=== PATIENT | male | born 1985 | race Caucasian/White ===

== ENCOUNTER 2021-08-29 08:28 | Outpatient (REF) | payer BC, SELFPAY ==
[2021-08-29 08:55] LABS: MANUAL DIFF FLAG NO
[2021-08-29 09:05] LABS: Basophils Percent Auto 0.5 % (0-2); Eosinophils Absolute Auto 0.4 X10*3/uL (0.0-0.4); Eosinophils Percent Auto 5.8 % (0-4); Hematocrit 43.1 % (42.0-52.0); Hemoglobin 14.9 g/dl (14.0-18.0); Imm Gran Abs Auto 0.01 X10*3/uL (0.00-0.03); Imm Gran Pct Auto 0.2 % (0.0-0.4); Lymphocytes Absolute Auto 2.1 X10*3/uL (1.2-4.9); Lymphocytes Percent Auto 35.4 % (20-40); Mean Corpuscular HGB Conc 34.6 g/dl (31.0-36.0); Mean Corpuscular Hemoglobin 29.9 pg (27.0-33.0); Mean Corpuscular Volume 86.4 fL (80.0-98.0); Mean Platelet Volume 10.4 fL (9.4-12.4); Monocytes Absolute Auto 0.6 X10*3/uL (0.1-1.2); Monocytes Percent Auto 9.7 % (2-11); Neutrophils Absolute Auto 2.9 x10*3/uL (2.0-8.3); Neutrophils Percent Auto 48.4 % (45-73); Platelet Count 195 X10*3/uL (160-400); Red Blood Count 4.99 X10*6/uL (4.60-5.80); Red Cell Distribution Width 12.3 % (11.0-16.0)
[2021-08-29 09:58] LABS: Alanine Aminotransferase 22 U/L (0-40); Albumin Level 4.4 g/dL (3.5-5.0); Alkaline Phosphatase 57 U/L (39-117); Anion Gap 9 (12-20); Aspartate Amino Transferase 18 U/L (5-37); Bilirubin Total 1.1 mg/dL (0.0-1.0); Blood Urea Nitrogen 10 mg/dL (9-16); Calcium 9.3 mg/dL (8.4-10.2); Carbon Dioxide 26 mmol/L (22-29); Chloride 108 mmol/L (96-108); Cholesterol 176 mg/dL; Estimated Glomerular Filt Rate > 60; Glucose Fasting 95 mg/dL (60-99); HDL Cholesterol 39 mg/dL; LDL Cholesterol Calculated 121 mg/dl; Potassium 4.2 mmol/L (3.3-5.1); Sodium 139 mmol/L (135-145); Total Protein 6.8 g/dL (6.5-8.0); Triglycerides 81 mg/dL
[2021-08-29 10:04] LABS: TSH reflex Free T4 1.12 uIU/mL (0.32-4.0); Vitamin D 25-OH Total 33.1 ng/mL (>30)
[2021-08-29 10:47] LABS: Appearance Urine CLEAR; Color Urine YELLOW; Glucose Urine UA NEG (NEG); Leukocyte Esterase Urine NEG (NEG); Nitrite Urine NEG (NEG); Specific Gravity - Urine >= 1.030 (1.005-1.025); Urine Blood NEG (NEG); Urine Ketones NEG (NEG); Urine Protein NEG (NEG-TRACE)
== END 2021-08-29 08:29 | disposition home or self-care (01) ==
LOC: HO.LAB 08:28
PROVIDERS: PCP Internal Medicine; Visit Provider Internal Medicine
DX: Z00.00 Encounter for general adult medical examination without abnormal findings (principal); E66.3 Overweight; E55.9 Vitamin D deficiency, unspecified
CPT/HCPCS: 36415; 80053; 80061; 81003; 82306; 84443; 85025

== ENCOUNTER 2022-08-22 09:40 | Outpatient (REF) | payer BC, SELFPAY ==
[2022-08-22 09:54] LABS: MANUAL DIFF FLAG NO
[2022-08-22 11:02] LABS: Basophils Percent Auto 0.4 % (0-2); Eosinophils Absolute Auto 0.3 X10*3/uL (0.0-0.4); Eosinophils Percent Auto 5.9 % (0-4); Hematocrit 42.8 % (42.0-52.0); Hemoglobin 14.8 g/dl (14.0-18.0); Imm Gran Abs Auto 0.01 X10*3/uL (0.00-0.03); Imm Gran Pct Auto 0.2 % (0.0-0.4); Lymphocytes Absolute Auto 1.8 X10*3/uL (1.2-4.9); Lymphocytes Percent Auto 36.2 % (20-40); Mean Corpuscular HGB Conc 34.6 g/dl (31.0-36.0); Mean Corpuscular Hemoglobin 29.8 pg (27.0-33.0); Mean Corpuscular Volume 86.1 fL (80.0-98.0); Mean Platelet Volume 10.7 fL (9.4-12.4); Monocytes Absolute Auto 0.5 X10*3/uL (0.1-1.2); Monocytes Percent Auto 10.5 % (2-11); Neutrophils Absolute Auto 2.4 x10*3/uL (2.0-8.3); Neutrophils Percent Auto 46.8 % (45-73); Platelet Count 173 X10*3/uL (160-400); Red Blood Count 4.97 X10*6/uL (4.60-5.80); Red Cell Distribution Width 12.1 % (11.0-16.0); White Blood Count 5.1 X10*3/uL (4.8-10.8)
[2022-08-22 12:12] LABS: Alanine Aminotransferase 30 U/L (0-40); Albumin Level 4.3 g/dL (3.5-5.0); Alkaline Phosphatase 54 U/L (39-117); Anion Gap 13 (12-20); Aspartate Amino Transferase 23 U/L (5-37); Bilirubin Total 1.5 mg/dL (0.0-1.0); Blood Urea Nitrogen 12 mg/dL (9-16); Calcium 9.6 mg/dL (8.4-10.2); Carbon Dioxide 24 mmol/L (22-29); Chloride 107 mmol/L (96-108); Cholesterol 173 mg/dL; Estimated Glomerular Filt Rate > 60; Glucose Fasting 89 mg/dL (60-99); HDL Cholesterol 38 mg/dL; LDL Cholesterol Calculated 115 mg/dl; Potassium 4.2 mmol/L (3.3-5.1); Sodium 140 mmol/L (135-145); TSH reflex Free T4 1.06 uIU/mL (0.32-4.0); Total Protein 6.7 g/dL (6.5-8.0); Triglycerides 100 mg/dL; Vitamin D 25-OH Total 31.7 ng/mL (>30)
[2022-08-22 12:39] LABS: Appearance Urine Clear; Color Urine Yellow; Glucose Urine UA Negative (Negative); Leukocyte Esterase Urine Negative (Negative); Nitrite Urine Negative (Negative); PH 6.5 (5.0-9.0); Specific Gravity - Urine 1.025 (1.005-1.025); Urine Blood Negative (Negative); Urine Ketones Negative (Negative); Urine Protein Negative (Neg-Trace)
== END 2022-08-22 09:41 | disposition home or self-care (01) ==
LOC: HO.LAB 09:40
PROVIDERS: PCP Internal Medicine; Visit Provider Internal Medicine
DX: Z00.00 Encounter for general adult medical examination without abnormal findings (principal); R76.8 Other specified abnormal immunological findings in serum; R79.89 Other specified abnormal findings of blood chemistry; R30.0 Dysuria; E55.9 Vitamin D deficiency, unspecified; E78.00 Pure hypercholesterolemia, unspecified
CPT/HCPCS: 36415; 80053; 80061; 81003; 82306; 84443; 85025

== ENCOUNTER 2023-03-19 06:22 | Emergency (ER) | payer BC, SELFPAY ==
--- NOTE | ~2023-03-19 | CT_ITS ---
EXAMINATION: CT ABDOMEN AND PELVIS WITHOUT CONTRAST CLINICAL INFORMATION: Abdominal pain radiating to the back. COMPARISON: Abdominal ultrasound from 08/16/2015. TECHNIQUE: Multidetector volumetric imaging was performed from the lung bases to the pubic without contrast. Sagittal and coronal reformatted images were obtained on the technologist workstation. This CT examination was performed using dose optimization techniques as appropriate, variously including the following: *Automated exposure control. *Adjustment of mA and/or kV according to patient size (this includes techniques or standardized protocols for targeted exams where dose is matched to indication/reason for exam; i.e. extremities or head). *Use of iterative reconstruction technique. DLP: 507 mGy-cm FINDINGS: LUNG BASES: No abnormalities of the visualized lung bases. No demonstrated abnormalities of the visualized cardiac structures. ABDOMEN/PELVIS: Liver, Biliary Ducts, and Gallbladder: The unenhanced liver is normal in size and attenuation without focal hepatic lesions or biliary ductal dilatation. The gallbladder is physiologically distended without radiopaque gallstones, pericholecystic fluid, or significant gallbladder wall thickening. Pancreas: The pancreas is normal in appearance. Adrenal Glands: The adrenal glands are normal in appearance. Spleen: The spleen is normal in appearance. Kidneys and Ureters: The unenhanced kidneys are normal in size without evidence of nephrolithiasis or hydronephrosis. No ureterolithiasis or hydroureter. Urinary Bladder: The urinary bladder is partially distended without focal wall thickening. No bladder calculi are demonstrated. Gastrointestinal System: The stomach is decompressed and therefore not well evaluated on this exam. The small bowel is of normal caliber. Mild diverticulosis of the descending colon. Moderate fat stranding surrounding an edematous tic filled with hyperattenuating material in the lower descending colon. Otherwise, the remainder of the colon is normal in appearance without focal wall thickening or pericolonic inflammatory change. Normal appendix. Genitourinary: Normal appearance of the prostate gland and seminal vesicles. Intra-abdominal and Retroperitoneal Spaces: No intra-abdominal free fluid collections or gas. No mesenteric, retroperitoneal, or inguinal lymphadenopathy. Small right-sided fat-containing inguinal hernia. VASCULATURE: The abdominal aorta is of normal contour and caliber. MUSCULOSKELETAL: Mild multilevel degenerative changes of the spine. No lytic or sclerotic osseous lesions demonstrated. No soft tissue masses demonstrated. CT/CT abdomen pelvis wo IV con IMPRESSION: Findings suggestive of acute diverticulitis of the descending colon. No evidence of perforation at this time.
[2023-03-19 06:43] VITALS: BP 112/88; PULSE 76; RESP 20; TEMP 36.1; O2SAT 98; BMI 28.6
--- NOTE | 2023-03-19 07:29 | ED.ABDPAIN ---
HPI - Abdominal Pain General Chief Complaint: Abdominal Pain Stated Complaint: stomach pain Time Seen by Provider: 03/19/23 07:28 Source: patient Mode of arrival: ambulatory Limitations: no limitations History of Present Illness HPI narrative: This is a 37-year-old male presenting to the emergency department for complaints of severe lower abdominal pain that started yesterday after eating, patient reports pain is mostly to the lower abdomen left lower quadrant however now he feels like the pain is everywhere. He has been able to tolerate p.o. without difficulty. Denies associated nausea, vomiting, diarrhea, fevers, chills, chest pain, shortness of breath, headache, vision changes, dizziness and weakness. No history of diverticulitis or kidney stones. Denies urinary symptoms. Related Data Previous Rx's Medication Instructions Recorded amoxicillin 875 mg-potassium 1 tab PO BID 10 days #20 tabs 03/19/23 clavulanate 125 mg tablet Allergies Allergy/AdvReac Type Severity Reaction Status Date / Time No Known Allergies Allergy Verified 08/22/22 09:14 [No Known Allergies*] Review of Systems Review of Systems Constitutional : No Weight loss, No Fever, No Chills, No Fatigue, No Malaise ENT/Mouth : No sore throat, No Rhinorrhea Eyes: No Eye Pain, No Swelling, No Redness Cardiovascular : No Chest Pain, No SOB, No Dyspnea on Exertion, No Orthopnea, No Edema, No Palpitations Respiratory : No Cough, No Sputum, No Wheezing Gastrointestinal : No Nausea, No Vomiting, No Diarrhea, No Constipation, + abdominal Pain, No Hematochezia, No Melena Genitourinary : No Dysuria, No Urinary Frequency, No Hematuria, Musculoskeletal : No joint pain, No Myalgias, No Joint Swelling Skin : No Skin Lesions, No rash Neuro : No Weakness, No Numbness, No Dizziness, No Headache Psych : No Anxiety/Panic, No Depression All other systems reviewed and are negative Yes all other systems are reviewed and are negative PMFSH Past Medical History Attestation statement: The following information was validated with the patient. Source: old records reviewed and nursing notes reviewed Medical History Helicobacter pylori antibody positive Overweight (BMI 25.0-29.9) Surgical History No pertinent past surgical history Family History Family History Mother No problems noted. Father No problems noted. Social History [facility] Alcohol intake: current Alcohol intake frequency: does not drink Patient Tobacco Use Status: Never used Tobacco e-Cigarette/Vaping Use: Never Used Second Hand Smoke Exposure: No Advance Directives: No Advance Directives Information Provided: Yes service: No Current occupational status: employed Cognitive needs: No Hearing needs: No Vision needs: No Physical Exam ED Vital Signs: Vital Signs - 24 hr 03/19/23 06:43 03/19/23 08:22 Temperature 97.0 F Pulse Rate 76 66 Respiratory Rate 20 18 Blood Pressure 112/88 123/75 Pulse Oximetry 98 95 Oxygen Delivery Method Room Air Room Air BMI result Body Mass Index 28.6 vss Appearance: Alert.? Oriented X3.? No acute distress.? Head: Normocephalic, atraumatic, no step-offs or deformities Eyes: Pupils equal, round and reactive to light.? ENT: Pharynx normal.? Neck: Normal inspection.? Neck supple.? CVS: Normal heart rate and rhythm.? Pulses normal.? Respiratory: No respiratory distress.? Breath sounds normal.? Abdomen: Soft and diffuse lower abdominal discomfort. Normal bowel sounds throughout.? Skin: Skin warm and dry.? Normal skin color.? Normal skin turgor.? Extremities: No lower extremity edema.? No calf ttp. 5/5 strength to bilateral upper and lower extremities Neuro: Oriented X 3.? No motor deficit.? No sensory deficit. CN 2-12 intact Course Reevaluation(s) Reevaluation #1: CBC unremarkable. Chemistry with no electrolyte abnormalities requiring intervention. Normal lipase. Normal troponin. CT abdomen and pelvis with concerns of acute diverticulitis of descending colon no evidence of perforation. Time: 09:24 Reevaluation #2: Patient reports he is feeling better he has not gotten Toradol yet. He is tolerating p.o. he does not want hospital admission and would like to go home on oral antibiotics. Vital signs stable, pain much improved exam improved. Will follow up with GI. Has never had a colonoscopy. Educated patient on diagnosis and treatment plan, answered all question, patient verbalizes understanding. At this time patient will be discharged home, advised to return with new or worsening symptoms. Educated on worrisome signs and symptoms and when to return. At this time I feel comfortable discharge home. Time: 09:24 Reevaluation #3: Tollerating PO at time of DC Time: 09:35 Medical Decision Making Medical Decision Making [facility] Narrative: 0731 37 year old male presents w/ abd pain with radiation to flank X 2 days PE- diffuse lower abdominal discomfort normal bowel sounds throughout Concerns for choclecystitis vs versus diverticulitis versus viral illness vs gasterenteritis. Unliikely acute abdomen, obstruction, appendicitis, cholangitis, choledocolithiasis. Other differential includes constipation. Less likely pyelo. Will rule out UTI and obstructing uropathy Plan- labs, imaging, urine Differential Diagnosis Differential Diagnoses: The differential diagnosis associated with the presentation includes Concerns for choclecystitis vs versus diverticulitis versus viral illness vs gasterenteritis. Unliikely acute abdomen, obstruction, appendicitis, cholangitis, choledocolithiasis. Other differential includes constipation. Less likely pyelo. Will rule out UTI and obstructing uropathy Admission/Observation Consideration of admission/observation: Escalation of care including admission/observation considered Lab Data [facility] Lab Attestation statement: I reviewed the patient's lab results. 03/19/23 07:26 03/19/23 07:26 Labs: Lab Results 03/19/23 Range/Units 07:26 WBC 9.7 (4.8-10.8) X10*3/uL RBC 4.97 (4.60-5.80) X10*6/uL Hgb 14.9 (14.0-18.0) g/dl Hct 42.3 (42.0-52.0) % MCV 85.1 (80.0-98.0) fL MCH 30.0 (27.0-33.0) pg MCHC 35.2 (31.0-36.0) g/dl RDW 12.2 (11.0-16.0) % Plt Count 181 (160-400) X10*3/uL MPV 10.0 (9.4-12.4) fL Immature Gran % (Auto) 0.3 (0.0-0.4) % Neut % (Auto) 71.3 (45-73) % Lymph % (Auto) 17.4 L (20-40) % [place] % (Auto) 8.1 (2-11) % Eos % (Auto) 2.7 (0-4) % Baso % (Auto) 0.2 (0-2) % Lymph # (Auto) 1.7 (1.2-4.9) X10*3/uL [place] # (Auto) 0.8 (0.1-1.2) X10*3/uL Eos # (Auto) 0.3 (0.0-0.4) X10*3/uL Baso # (Auto) 0.0 (0.0-0.2) X10*3/uL Abs Immat Gran (auto) 0.03 (0.00-0.03) X10*3/uL Absolute Neuts (auto) 6.9 (2.0-8.3) x10*3/uL Absolute Nucleated RBC 0.000 (0.0-0.012) X10*3/uL Nucleated RBC % (auto) 0.0 (0.0-0.2) /100WBC Sodium 141 (135-145) mmol/L Potassium 4.0 (3.3-5.1) mmol/L Chloride 104 (96-108) mmol/L Carbon Dioxide 29 (22-29) mmol/L Anion Gap 12 (12-20) BUN 10 (9-16) mg/dL Creatinine 0.84 (0.5-1.4) mg/dL Estim Creat Clear Calc 118.7 Estimated GFR > 60 Random Glucose 104 (60-115) mg/dL Calcium 10.0 (8.4-10.2) mg/dL Total Bilirubin 0.7 (0.0-1.0) mg/dL AST 17 (5-37) U/L ALT 17 (0-40) U/L Alkaline Phosphatase 52 (39-117) U/L Troponin I High Sens < 2.7 (<3.5-35.0) ng/L Total Protein 7.1 (6.5-8.0) g/dL Albumin 4.4 (3.5-5.0) g/dL Lipase 16 (8-78) U/L Independent Interpretation I performed an independent interpretation of an: CT Scan (CT/CT abdomen pelvis wo IV con IMPRESSION: Findings suggestive of acute diverticulitis of the descending colon. No evidence of perforation at this time. ) Radiology Impression Discussion of test interpretation with radiology: I have reviewed the radiologist's reading. External Record Review External record reviewed: Primary care record Critical Care Time Critical Care Time Critical Care Time: No Discharge Plan Discharge Clinical Impression: Diverticulitis Patient Disposition: Home, Self-Care Instructions: Diverticulitis (ED), Diverticulitis Diet (ED) Additional Instructions: Take your medications as prescribed. If you were prescribed antibiotics today, it is important that you take your medication to their entirety, do not skip any doses, do not finish them early. Follow-up with your primary care provider this week. Return to the emergency department with new or worsening symptoms. Such as fevers, chills, chest pain, shortness of breath, nausea, vomiting, dizziness, headache, vision changes, lethargy In case of emergency call 911 Please return for worsening pain, fevers, chills, nausea, vomiting, inability to tolerate food. Toradol has been sent to your pharmacy, you tolerated this well in the department. Please take this as prescribed do not take this with ibuprofen, or other NSAIDs, do not mix this with alcohol. Side effects of this medication including increased risk for bleeding and possible kidney injury. Follow-up with GI. Information below. Prescriptions: New amoxicillin-pot clavulanate 875-125 mg tablet 1 tab PO BID 10 Days Qty: 20 0RF Referrals: [facility] [Provider Group] - 1 week Rashawn Banerjee MD [Primary Care Provider] - 2 days
[2023-03-19 07:30] LABS: MANUAL DIFF FLAG NO
[2023-03-19 07:31] LABS: Basophils Percent Auto 0.2 % (0-2); Eosinophils Absolute Auto 0.3 X10*3/uL (0.0-0.4); Eosinophils Percent Auto 2.7 % (0-4); Hematocrit 42.3 % (42.0-52.0); Hemoglobin 14.9 g/dl (14.0-18.0); Imm Gran Abs Auto 0.03 X10*3/uL (0.00-0.03); Imm Gran Pct Auto 0.3 % (0.0-0.4); Lymphocytes Absolute Auto 1.7 X10*3/uL (1.2-4.9); Lymphocytes Percent Auto 17.4 % (20-40); Mean Corpuscular HGB Conc 35.2 g/dl (31.0-36.0); Mean Corpuscular Volume 85.1 fL (80.0-98.0); Monocytes Absolute Auto 0.8 X10*3/uL (0.1-1.2); Monocytes Percent Auto 8.1 % (2-11); Neutrophils Absolute Auto 6.9 x10*3/uL (2.0-8.3); Neutrophils Percent Auto 71.3 % (45-73); Platelet Count 181 X10*3/uL (160-400); Red Blood Count 4.97 X10*6/uL (4.60-5.80); Red Cell Distribution Width 12.2 % (11.0-16.0); White Blood Count 9.7 X10*3/uL (4.8-10.8)
[2023-03-19 07:50] LABS: Alanine Aminotransferase 17 U/L (0-40); Albumin Level 4.4 g/dL (3.5-5.0); Alkaline Phosphatase 52 U/L (39-117); Anion Gap 12 (12-20); Aspartate Amino Transferase 17 U/L (5-37); Bilirubin Total 0.7 mg/dL (0.0-1.0); Blood Urea Nitrogen 10 mg/dL (9-16); Carbon Dioxide 29 mmol/L (22-29); Chloride 104 mmol/L (96-108); Creatinine Clr Calc Pharmacy 118.7; Estimated Glomerular Filt Rate > 60; Glucose Random 104 mg/dL (60-115); Lipase 16 U/L (8-78); Sodium 141 mmol/L (135-145); Total Protein 7.1 g/dL (6.5-8.0)
[2023-03-19 08:22] VITALS: BP 123/75; PULSE 66; RESP 18; O2SAT 95
[2023-03-19 08:57] LABS: Troponin-I High Sensitivity < 2.7 ng/L (<3.5-35.0)
--- NOTE | 2023-03-19 09:27 | PC.NURSE ---
requested PO challenge. pt reports he does not want to to do that . educated pt on safety of PO challenge prior to d./c. pt accepted. continues to state that he does not want to stay in the hospital
[2023-03-19 09:35] LABS: Appearance Urine Turbid; Color Urine Yellow; Glucose Urine UA Negative (Negative); Leukocyte Esterase Urine Negative (Negative); Nitrite Urine Negative (Negative); PH >= 9.0 (5.0-9.0); Urine Blood Negative (Negative); Urine Ketones Negative (Negative); Urine Protein Negative (Neg-Trace)
[2023-03-19 09:37] LABS: Bacteria Urine None Seen (None Seen); Hyaline Casts Urine 0-2 /LPF (0-2); RBC Urine 0-2 /HPF (0-2); Squamous Epithelial Cell Urine 0-2 /HPF (0-2); WBC Urine 0-5 /HPF (0-5)
[2023-03-19] MEDS: Amoxicillin/Potassium Clav 875 MG TABLET PO (09:55)
[2023-03-19] MEDS: Ketorolac Tromethamine 15 MG/ML VIAL 30 MG IVPUSH (09:55)
--- NOTE | 2023-03-19 10:05 | PC.NURSE ---
pt successfully completed PO challenge. plan for d/c pt not will to stay in the hospital.
== END 2023-03-19 10:05 | disposition home or self-care (01) ==
PROVIDERS: Physician Assistant; Emergency Provider Emergency Medicine; PCP Internal Medicine
DX: K57.32 Diverticulitis of large intestine without perforation or abscess without bleeding (principal); R10.2 Pelvic and perineal pain; Z79.899 Other long term (current) drug therapy
CPT/HCPCS: 36415; 74176; 80053; 81001; 83690; 84484; 85025; 96374; 99283; 99284; J1885

== ENCOUNTER 2023-06-03 10:23 | Outpatient (AMB) | payer BC, SELFPAY ==
[2023-06-03 10:35] VITALS: BP 102/76; PULSE 76; O2SAT 97; BMI 25.9
--- NOTE | 2023-06-03 10:35 | A.OFFPC_ITS ---
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 Accompanied by: Self / Same As Patient Allergies No Known Allergies [No Known Allergies*] Allergy (Verified 06/03/23 11:22) Medication List - Last Reconciled 06/03/23 by Rashawn Banerjee MD No Known Home Meds Tobacco use date assessed: 06/03/23 Dental Screening Dental Screen Date: 06/03/23 Did you have a dental visit in the last 12 months?: Yes Did you have a dental problem in the last 6 months where you did not have access to dental care?: No Was dental information given to patient?: Patient has dentist HPI abdominal pain HPI Details Patient comes in today for his follow up visit States that he had a bout of diverticulitis back at the end of February 2023 when he went to the ER with severe lower abdominal pain His labs done at the ER came out okay but abdominal and pelvic CT done revealed (+) findings consistent with diverticulitis of the descending colon and he was prescribed Augmentin 875 mg BID x 10 days, after which his symptoms gradually improved and are now resolved States that he's had no recurrence of his abdominal pain since and he is scheduled to see his gastroterologist at [place] (Dr. Bradshaw) tomorrow for follow up and is wondering that considering his recent issues, should have a colonoscopy done States that he has issues with constipation often and does not go to the bathroom regularly - is not sure if he should be taking anything regularly for this or not He denies any fever, headaches or dizziness Denies any chest pains, no SOB No nausea/vomiting, no abdominal pains lately [facility] Medical History Helicobacter pylori antibody positive Overweight (BMI 25.0-29.9) Surgical History No pertinent past surgical history Family History Mother No problems noted. Father No problems noted. Social History Housing: Condominium Alcohol intake: current Alcohol intake frequency: does not drink Patient Tobacco Use Status: Never used Tobacco e-Cigarette/Vaping Use: Never Used Second Hand Smoke Exposure: No service: No Current occupational status: employed Cognitive needs: No Hearing needs: No Vision needs: No Questionnaire PHQ-9 Over the last 2 weeks, how often have you been bothered by any of the following problems? 1. Little interest or pleasure in doing things: not at all 2. Feeling down, depressed, or hopeless: not at all 3. Trouble falling or staying asleep, or sleeping too much: not at all 4. Feeling tired or having little energy: not at all 5. Poor appetite or overeating: not at all 6. Feeling bad about yourself - or that you are a failure or have let yourself or your family down: not at all 7. Trouble concentrating on things, such as reading the newspaper or watching television: not at all 8. Moving or speaking so slowly that other people could have noticed. Or the opposite - being so fidgety or restless that you have been moving around a lot more than usual: not at all 9. Thoughts that you would be better off or of hurting yourself in some way: not at all Total score: 0 Depression Screening Interpretation: Negative Depression Screening Done: Yes 81529 - PHQ-9 Billing: Yes Source: Developed by Drs. Magno Jones, Tara Willson, Fredis Leyva and colleagues, with an educational kim from [employer]. Thrive Questionnaire Date Thrive assessed: 06/03/23 I am a: Patient What is your living situation today?: I have a steady place to live Within the past 12 months, did the food you bought not last and you didn't have the money to get more?: Never true Within the past 12 months, did you worry whether your food would run out before you got money to buy more?: Never true Do you have trouble paying for medicines?: No Do you have trouble getting transportation to medical appointments?: No Do you have trouble paying your heating and electricity bill?: No Do you have trouble taking care of your child, family member or friend?: No Do you have trouble with day-to-day activities such as bathing, preparing meals, shopping, managing finances, etc.?: No Are you currently unemployed and looking for a job?: No Are you interested in more education?: No Please select the resources that you would like help with: None Currently or been in a relationship where the following occur: no concerns reported THRIVE Score: 0 AUDIT C Alcohol Use Questionnaire (AUDIT-C) 1. How often do you have a drink containing alcohol?: Never 3. How often do you have six or more drinks on one occasion?: Never Total Score: 0 Score Reviewed/Action Taken: Yes DELPHINE-7 AMB Questionnaire DELPHINE-7 Date DELPHINE - 7 assessed: 06/03/23 Feeling nervous, anxious, or on edge: 0 = Not at all Not being able to stop or control worryin = Not at all Worrying too much about different things: 0 = Not at all Trouble relaxin = Not at all Being so restless that it is hard to sit still: 0 = Not at all Becoming easily annoyed or irritable: 0 = Not at all Feeling afraid as if something awful might happen: 0 = Not at all Total DELPHINE-7 score (0-4 normal; 5-9 mild; 10-14 moderate; 15-21 severe): 0 Source: Developed by Drs. Magno Jones, Tara Willson, Fredis Leyva and colleagues, with an educational kim from [employer]. Review of Systems Const Denies chills, Denies fatigue, Denies fever(s) and Denies headache(s) ENT Denies dysphagia, Denies dizziness, Denies otalgia, Denies headache(s), Denies neck pain, Denies odynophagia and Denies sore throat Card Denies chest pain, Denies palpitations and Denies dyspnea Resp Denies cough and Denies dyspnea GI Denies abdominal pain, Reports constipation, Denies dysphagia, Denies heartburn, Denies diarrhea, Denies nausea, Denies odynophagia and Denies vomiting Denies dysuria, Denies nocturia and Denies urinary frequency Musc Denies back pain and Denies neck pain Skin/Breast Denies rash Neuro Denies dizziness and Denies headache(s) Endo Denies fatigue and Denies palpitations Physical exam (Primary Care) Vital Signs: Last Vital Signs Pulse 76 06/03/23 10:35 BP 102/76 06/03/23 10:35 Pulse Ox 97 06/03/23 10:35 Oxygen Delivery Method Room Air 06/03/23 10:35 BMI result Body Mass Index 25.9 Tobacco/Smoking Status: Tobacco use Status Tobacco use date assessed 06/03/23 06/03/23 10:38 Patient Tobacco Use Status Never used Tobacco 06/03/23 10:38 e-Cigarette/Vaping Use Never Used 06/03/23 10:38 PHQ-9: PHQ-9 Score PHQ-9: Total score 0 06/03/23 11:32 Depression Screening Interpretation: Negative Thrive Assessment: Date of Thrive Assessment Date Thrive assessed 06/03/23 06/03/23 10:38 Currently or been in a relationship where the following occur: no concerns reported Const General: no acute distress and alert Neck Neck: Yes no lymphadenopathy and Yes supple Thyroid: Thyroid normal Resp Auscultation: clear to auscultation bilaterally, no rales and no wheezes Cardio Rate: regular rate Rhythm: regular rhythm Heart sounds: no murmurs GI Palpation (GI): Soft to palpation and nontender Auscultation: normal bowel sounds Extrem General: Yes no clubbing, cyanosis or edema Assessment and Plan Assessment & Plan (1) Constipation: Code(s): K59.00 - Constipation, unspecified Qualifiers: Constipation type: unspecified constipation type Qualified Code(s): K59.00 - Constipation, unspecified Plan: Encouraged increased oral fluids and dietary fiber; advised that drinking some prune juice as needed can often help with constipation Will start him on Miralax 17 gm QD - advised that this should be taken daily for it to be effective Can also take OTC Senna 8.6 mg Q HS if needed As he does not have any family history of early colon cancer, advised that a colonoscopy is likely not yet indicated for him at this time (2) Helicobacter pylori antibody positive: Comment: treated with Abx by GI (Dr. Bradshaw) at [facility] Code(s): R76.8 - Other specified abnormal immunological findings in serum Plan: S/P Tx for H. pylori back in February 2022 by GI (Dr. Bradshaw at [facility]), with significant improvement/resolution of his GI symptoms Follow up with GI as scheduled (3) Overweight (BMI 25.0-29.9): Code(s): E66.3 - Overweight Plan: Reinforced diet/exercise as tolerated/lose weight Plan To return as scheduled in August 2023 for his annual physical examination Patient is advised to get his labs done before he comes in for his annual physical exam in a few months Orders: Orders Lipid Panel 08/20/23 E78.00 - Pure hypercholesterolemia, unspecified, Z00.00 - Encounter for general adult medical examination without abnormal findings TSH reflex Free T4 08/20/23 E78.00 - Pure hypercholesterolemia, unspecified, Z00.00 - Encounter for general adult medical examination without abnormal findings UA CC w/rflx Micro + Cult 08/20/23 R30.0 - Dysuria, Z00.00 - Encounter for general adult medical examination without abnormal findings Vitamin D 25-OH Total 08/20/23 E55.9 - Vitamin D deficiency, unspecified, Z00.00 - Encounter for general adult medical examination without abnormal findings Complete Blood Count Auto Diff 08/20/23 D64.9 - Anemia, unspecified, Z00.00 - Encounter for general adult medical examination without abnormal findings Comprehensive [place]. Panel Fast 08/20/23 E78.00 - Pure hypercholesterolemia, unspecified, Z00.00 - Encounter for general adult medical examination without abnormal findings Medications: New polyethylene glycol 3350 (Miralax) 17 grams PO DAILY 510 grams 5RF Coding Level of Care Code Est Pt Level 3 (65923) Diagnoses Constipation, unspecified constipation type K59.00 Constipation type: unspecified constipation type Helicobacter pylori antibody positive R76.8 Overweight (BMI 25.0-29.9) E66.3
== END 2023-06-03 11:35 | disposition home or self-care (01) ==
PROVIDERS: PCP Internal Medicine; Visit Provider Internal Medicine
DX: K59.00 Constipation, unspecified (principal); R76.8 Other specified abnormal immunological findings in serum; E66.3 Overweight
CPT/HCPCS: 99213

== ENCOUNTER 2023-08-26 09:01 | Outpatient (AMB) | payer BC, SELFPAY ==
[2023-08-26 09:04] VITALS: BP 102/68; PULSE 73; O2SAT 98; BMI 26.3
--- NOTE | 2023-08-26 09:04 | MHC.PC.OV ---
Vital Signs 08/26/23 09:04 Height 5 ft 6 in Weight 163 lb 0.4 oz BMI 26.3 BP 102/68 Blood Pressure Location Lt brachial Position Sitting Pulse 73 Pulse Source Pulse Oximeter Pulse Oximetry (%) 98 Oxygen Delivery Method Room Air Intake Visit Reasons: annual PE Intake Note: Patient is here today for a physical. Administrative Nursing Supervisor Required: No Allergies No Known Allergies [No Known Allergies*] Allergy (Verified 08/26/23 09:45) Medication List - Last Reconciled 08/26/23 by Rashawn Banerjee MD polyethylene glycol 3350 (Miralax) 17 grams PO DAILY Tobacco use date assessed: 08/26/23 Dental Screening Dental Screen Date: 08/26/23 Did you have a dental visit in the last 12 months?: Yes Did you have a dental problem in the last 6 months where you did not have access to dental care?: No Was dental information given to patient?: Patient has dentist HPI annual PE HPI Details Patient comes in today for his annual physical examination States that he feels okay He denies any headaches or dizziness Denies any chest pains, no SOB No nausea/vomiting, no abdominal pain No change in bowel habits noted - states that his constipation has been better controlled lately He continues to take Miralax and has increased his oral fluid and dietary fiber intake, which has helped him a lot He also had his colonoscopy done a few weeks ago with Dr. Bradshaw at [place] - colonoscopy revealed only (+) sigmoid diverticulosis but was otherwise normal and he was advised that he will need repeat colonoscopy in 10 years [facility] Medical History Helicobacter pylori antibody positive Overweight (BMI 25.0-29.9) Surgical History (Updated 08/26/23 @ 09:58 by Rashawn Banerjee MD) Hx of colonoscopy Family History Mother No problems noted. Father No problems noted. Social History [facility] Alcohol intake: current Alcohol intake frequency: does not drink Patient Tobacco Use Status: Never used Tobacco e-Cigarette/Vaping Use: Never Used Second Hand Smoke Exposure: No service: No Current occupational status: employed Cognitive needs: No Hearing needs: No Vision needs: No Questionnaire PHQ-9 Over the last 2 weeks, how often have you been bothered by any of the following problems? 1. Little interest or pleasure in doing things: not at all 2. Feeling down, depressed, or hopeless: not at all 3. Trouble falling or staying asleep, or sleeping too much: not at all 4. Feeling tired or having little energy: not at all 5. Poor appetite or overeating: not at all 6. Feeling bad about yourself - or that you are a failure or have let yourself or your family down: not at all 7. Trouble concentrating on things, such as reading the newspaper or watching television: not at all 8. Moving or speaking so slowly that other people could have noticed. Or the opposite - being so fidgety or restless that you have been moving around a lot more than usual: not at all 9. Thoughts that you would be better off or of hurting yourself in some way: not at all Total score: 0 Depression Screening Interpretation: Negative Depression Screening Done: Yes 45451 - PHQ-9 Billing: Yes Source: Developed by Drs. Magno Jones, Tara Willson, Fredis Leyva and colleagues, with an educational kim from [employer]. Thrive Questionnaire Date Thrive assessed: 08/26/23 I am a: Patient What is your living situation today?: I have a steady place to live Within the past 12 months, did the food you bought not last and you didn't have the money to get more?: Never true Within the past 12 months, did you worry whether your food would run out before you got money to buy more?: Never true Do you have trouble paying for medicines?: No Do you have trouble getting transportation to medical appointments?: No Do you have trouble paying your heating and electricity bill?: No Do you have trouble taking care of your child, family member or friend?: No Do you have trouble with day-to-day activities such as bathing, preparing meals, shopping, managing finances, etc.?: No Are you currently unemployed and looking for a job?: No Are you interested in more education?: No Please select the resources that you would like help with: None Currently or been in a relationship where the following occur: no concerns reported THRIVE Score: 0 AUDIT C Alcohol Use Questionnaire (AUDIT-C) 1. How often do you have a drink containing alcohol?: Never 3. How often do you have six or more drinks on one occasion?: Never Total Score: 0 Score Reviewed/Action Taken: Yes DELPHINE-7 AMB Questionnaire DELPHINE-7 Date DELPHINE - 7 assessed: 08/26/23 Feeling nervous, anxious, or on edge: 0 = Not at all Not being able to stop or control worryin = Not at all Worrying too much about different things: 0 = Not at all Trouble relaxin = Not at all Being so restless that it is hard to sit still: 0 = Not at all Becoming easily annoyed or irritable: 0 = Not at all Feeling afraid as if something awful might happen: 0 = Not at all Total DELPHINE-7 score (0-4 normal; 5-9 mild; 10-14 moderate; 15-21 severe): 0 Source: Developed by Drs. Magno Jones, Tara Willson, Fredis Leyva and colleagues, with an educational kim from [employer]. Review of Systems Const Denies chills, Denies fatigue, Denies fever(s), Denies headache(s), Denies malaise and Denies weakness Eyes Denies blurry vision, Denies change in vision, Denies irritation and Denies itchy eyes ENT Denies dysphagia, Denies dizziness, Denies otalgia, Denies headache(s), Denies nasal congestion, Denies neck pain, Denies odynophagia and Denies sore throat Card Denies chest pain, Denies rapid heart rate, Denies irregular heart rhythm, Denies palpitations and Denies dyspnea Resp Denies chest congestion, Denies cough, Denies dyspnea and Denies wheezing GI Denies abdominal pain, Denies bloating, Denies constipation, Denies dysphagia, Denies heartburn, Denies diarrhea, Denies nausea, Denies odynophagia and Denies vomiting Denies hematuria, Denies difficulty urinating, Denies dysuria, Denies urinary frequency and Denies urinary urgency Musc Denies back pain, Denies arthralgias, Denies joint swelling, Denies muscle weakness and Denies neck pain Skin/Breast Denies change in pigmentation, Denies lesions, Denies rash and Denies unusual bruising Neuro Denies dizziness, Denies headache(s), Denies paresthesias and Denies weakness Endo Denies fatigue and Denies palpitations Aller/Immun Denies itchy eyes and Denies wheezing Physical exam (Primary Care) Vital Signs: Last Vital Signs Pulse 73 08/26/23 09:04 BP 102/68 08/26/23 09:04 Pulse Ox 98 08/26/23 09:04 Oxygen Delivery Method Room Air 08/26/23 09:04 BMI result Body Mass Index 26.3 Tobacco/Smoking Status: Tobacco use Status Tobacco use date assessed 08/26/23 08/26/23 09:05 Patient Tobacco Use Status Never used Tobacco 08/26/23 09:05 e-Cigarette/Vaping Use Never Used 08/26/23 09:05 PHQ-9: PHQ-9 Score PHQ-9: Total score 0 08/26/23 09:16 Depression Screening Interpretation: Negative Thrive Assessment: Date of Thrive Assessment Date Thrive assessed 08/26/23 08/26/23 09:16 Currently or been in a relationship where the following occur: no concerns reported Const General: no acute distress, alert and awake Orientation/consciousness: patient oriented x3 HENMT Head: Yes normocephalic and Yes atraumatic Ears: external ears normal, TM's normal bilaterally and EAC's normal General nose exam: No nasal discharge present Face and sinus: Yes normal facial exam and Yes sinuses nontender Teeth and gingiva: dentition normal Throat: Yes posterior oropharynx normal and Yes tonsils normal (no TP congestion) Eyes Eyelids: Yes eyelids normal Conjunctivae: conjunctivae normal Pupils: Equal, round and reactive pupils present EOM: EOMs intact bilaterally Neck Neck: Yes no lymphadenopathy and Yes supple Thyroid: Thyroid normal Resp Auscultation: clear to auscultation bilaterally, no rales and no wheezes Cardio Rate: regular rate Rhythm: regular rhythm Heart sounds: no murmurs GI Palpation (GI): Soft to palpation, nontender and No hepatosplenomegaly present Auscultation: normal bowel sounds General: Yes no CVA tenderness Back/Spine/Pelvis Back: no CVA tenderness Thoracic/Lumbar Spine: thoracic and lumbar spine normal to inspection Skin Lesions: no lesions Rashes: no rashes Neuro General: patient oriented x3, moves all extremities, no focal motor deficits and CN's II-XI intact bilaterally Cranial nerves: Yes Equal, round and reactive pupils present Cognition (Neuro): normal cognition Gait exam (Neuro): Normal gait present Extrem General: Yes no clubbing, cyanosis or edema Assessment and Plan Assessment & Plan (1) Annual physical exam: Code(s): Z00.00 - Encounter for general adult medical examination without abnormal findings Plan: Check labs - patient was not able to get his labs done prior to his appointment today and is advised to try to get these done ART He just had his colonoscopy done a few weeks ago on 07/31/2023 and will be due for repeat colonoscopy in 10 years (2) Constipation: Code(s): K59.00 - Constipation, unspecified Qualifiers: Constipation type: unspecified constipation type Qualified Code(s): K59.00 - Constipation, unspecified Plan: Patient is again encouraged on increased oral fluids and dietary fiber - states that his bowel movements have been much better controlled lately Continue Miralax 17 gm QD; can also continue to take OTC Senna 8.6 mg Q HS as needed (3) Helicobacter pylori antibody positive: Comment: treated with Abx by GI (Dr. Bradshaw) at [facility] Code(s): R76.8 - Other specified abnormal immunological findings in serum Plan: S/P Tx for H. pylori back in February 2022 by GI (Dr. Bradshaw at [facility]), with significant improvement/resolution of his GI symptoms Follow up with GI as scheduled (4) Elevated LFTs: Code(s): R79.89 - Other specified abnormal findings of blood chemistry Plan: His LFTs were normal when they were last checked in February 2023 Abdominal US done in 2013 came out normal Will recheck his LFTs for follow up (5) Overweight (BMI 25.0-29.9): Code(s): E66.3 - Overweight Plan: Reinforced diet/exercise as tolerated/lose weight Plan To return in 1 year for his next annual physical examination Orders: Orders Comprehensive [place]. Panel Fast 1 Year E78.00 - Pure hypercholesterolemia, unspecified, Z00.00 - Encounter for general adult medical examination without abnormal findings Lipid Panel 1 Year E78.00 - Pure hypercholesterolemia, unspecified, Z00.00 - Encounter for general adult medical examination without abnormal findings TSH reflex Free T4 1 Year E78.00 - Pure hypercholesterolemia, unspecified, Z00.00 - Encounter for general adult medical examination without abnormal findings Vitamin D 25-OH Total 1 Year E55.9 - Vitamin D deficiency, unspecified, Z00.00 - Encounter for general adult medical examination without abnormal findings Complete Blood Count Auto Diff 1 Year D64.9 - Anemia, unspecified, Z00.00 - Encounter for general adult medical examination without abnormal findings UA CC w/rflx Micro + Cult 1 Year R30.0 - Dysuria, Z00.00 - Encounter for general adult medical examination without abnormal findings Coding Level of Care Code Est Pt Prev Care 18-39y(37365) Diagnoses Annual physical exam Z00.00 Constipation, unspecified constipation type K59.00 Constipation type: unspecified constipation type Helicobacter pylori antibody positive R76.8 Elevated LFTs R79.89 Overweight (BMI 25.0-29.9) E66.3
== END 2023-08-26 09:51 | disposition home or self-care (01) ==
PROVIDERS: PCP Internal Medicine; Visit Provider Internal Medicine
DX: Z00.00 Encounter for general adult medical examination without abnormal findings (principal); K59.00 Constipation, unspecified; R76.8 Other specified abnormal immunological findings in serum; R79.89 Other specified abnormal findings of blood chemistry; E66.3 Overweight
CPT/HCPCS: 99395

== ENCOUNTER 2023-09-01 10:17 | Outpatient (REF) | payer BC, SELFPAY ==
[2023-09-01 10:29] LABS: MANUAL DIFF FLAG NO
[2023-09-01 11:08] LABS: Basophils Percent Auto 0.4 % (0-2); Eosinophils Absolute Auto 0.2 X10*3/uL (0.0-0.4); Eosinophils Percent Auto 4.4 % (0-4); Hematocrit 42.2 % (42.0-52.0); Imm Gran Abs Auto 0.01 X10*3/uL (0.00-0.03); Imm Gran Pct Auto 0.2 % (0.0-0.4); Lymphocytes Absolute Auto 1.8 X10*3/uL (1.2-4.9); Lymphocytes Percent Auto 39.6 % (20-40); Mean Corpuscular HGB Conc 35.5 g/dl (31.0-36.0); Mean Corpuscular Hemoglobin 30.8 pg (27.0-33.0); Mean Corpuscular Volume 86.7 fL (80.0-98.0); Mean Platelet Volume 10.6 fL (9.4-12.4); Monocytes Absolute Auto 0.4 X10*3/uL (0.1-1.2); Monocytes Percent Auto 7.8 % (2-11); Neutrophils Absolute Auto 2.1 x10*3/uL (2.0-8.3); Neutrophils Percent Auto 47.6 % (45-73); Platelet Count 167 X10*3/uL (160-400); Red Blood Count 4.87 X10*6/uL (4.60-5.80); Red Cell Distribution Width 12.1 % (11.0-16.0); White Blood Count 4.5 X10*3/uL (4.8-10.8)
[2023-09-01 12:18] LABS: Alanine Aminotransferase 16 U/L (0-40); Albumin Level 4.5 g/dL (3.5-5.0); Alkaline Phosphatase 56 U/L (39-117); Anion Gap 10 (12-20); Aspartate Amino Transferase 16 U/L (5-37); Bilirubin Total 1.1 mg/dL (0.0-1.0); Blood Urea Nitrogen 12 mg/dL (9-16); Calcium 9.7 mg/dL (8.4-10.2); Carbon Dioxide 30 mmol/L (22-29); Chloride 106 mmol/L (96-108); Cholesterol 153 mg/dL (<200); Estimated Glomerular Filt Rate > 60; Glucose Fasting 85 mg/dL (60-99); HDL Cholesterol 42 mg/dL (>40); LDL Cholesterol Calculated 101 mg/dL (<100); Potassium 4.1 mmol/L (3.3-5.1); Sodium 142 mmol/L (135-145); TSH reflex Free T4 1.03 uIU/mL (0.32-4.0); Total Protein 7.1 g/dL (6.5-8.0); Triglycerides 51 mg/dL (<150); Vitamin D 25-OH Total 38.7 ng/mL (>30)
[2023-09-01 14:05] LABS: Appearance Urine Clear; Color Urine Yellow; Glucose Urine UA Negative (Negative); Leukocyte Esterase Urine Negative (Negative); Nitrite Urine Negative (Negative); PH 6.5 (5.0-9.0); Specific Gravity - Urine 1.015 (1.005-1.025); Urine Blood Negative (Negative); Urine Ketones Negative (Negative); Urine Protein Negative (Neg-Trace)
== END 2023-09-01 10:18 | disposition home or self-care (01) ==
LOC: HO.LAB 10:17
PROVIDERS: PCP Internal Medicine; Visit Provider Internal Medicine
DX: Z00.00 Encounter for general adult medical examination without abnormal findings (principal); E78.00 Pure hypercholesterolemia, unspecified; R30.0 Dysuria; E55.9 Vitamin D deficiency, unspecified; D64.9 Anemia, unspecified
CPT/HCPCS: 36415; 80053; 80061; 81003; 82306; 84443; 85025

== ENCOUNTER 2024-09-20 08:56 | Outpatient (AMB) | payer BC, SELFPAY ==
[2024-09-20 08:58] VITALS: BP 116/80; PULSE 78; TEMP 36.3; O2SAT 98; BMI 27.0
--- NOTE | 2024-09-20 08:58 | A.OFFPC_ITS ---
Vital Signs 09/20/24 08:58 Height 5 ft 6 in Weight 167 lb 2 oz BMI 27.0 BP 116/80 Blood Pressure Location Lt brachial Position Sitting Pulse 78 Pulse Source Pulse Oximeter Temp 97.3 F Temp Source Temporal Artery Scan Pulse Oximetry (%) 98 Oxygen Delivery Method Room Air Intake Visit Reasons: annual exam Allergies No Known Allergies (No Known Allergies*) Allergy (Verified 09/20/24 09:09) Medication List - Last Reconciled 09/20/24 by ERENDIRA Aceves No Known Home Meds Tobacco use date assessed: 09/20/24 Dental Screening Dental Screen Date: 09/20/24 Did you have a dental visit in the last 12 months?: Yes Did you have a dental problem in the last 6 months where you did not have access to dental care?: No Was dental information given to patient?: Patient has dentist HPI annual exam HPI Details Dentist: up to date, two weeks ago Eye: up to date Snellen: Right: Left: Corrected vision:no STI screening: Colonoscopy:07/2023-repeat in 10 years Pap Smer:n/a PHQ-9: Flu: used to check annually then stopped COVID: never had anything Tdap:he things that had this at some point. He is not sure when Diet:regular Exercise:he does not exercise right side of nose flesh colored mole-does not look suspicious but reports that it has gotten somewhat bigger. will refer to Dermatology to possibly removed. Complains of intermittent prostate pain that comes on and goes away quickly. The pain is sharp in nature. Reports that this has been going on for a while more than a year. He does not have any other symptoms. We will add a PSA to his prescheduled labs. [facility] Medical History Helicobacter pylori antibody positive Overweight (BMI 25.0-29.9) Surgical History Hx of colonoscopy Family History Mother No problems noted. Father No problems noted. Social History Housing: Condominium Alcohol intake: current Alcohol intake frequency: does not drink Patient Tobacco Use Status: Never used Tobacco e-Cigarette/Vaping Use: Never Used Second Hand Smoke Exposure: No service: No Current occupational status: employed Cognitive needs: No Hearing needs: No Vision needs: No Questionnaire PHQ-9 Over the last 2 weeks, how often have you been bothered by any of the following problems? 1. Little interest or pleasure in doing things: more than half the days 2. Feeling down, depressed, or hopeless: not at all 3. Trouble falling or staying asleep, or sleeping too much: several days 4. Feeling tired or having little energy: several days 5. Poor appetite or overeating: several days 6. Feeling bad about yourself - or that you are a failure or have let yourself or your family down: not at all 7. Trouble concentrating on things, such as reading the newspaper or watching television: not at all 8. Moving or speaking so slowly that other people could have noticed. Or the opposite - being so fidgety or restless that you have been moving around a lot more than usual: not at all 9. Thoughts that you would be better off or of hurting yourself in some way: not at all Total score: 5 Depression Screening Interpretation: Negative Depression Screening Done: Yes 04770 - PHQ-9 Billing: Yes Source: Developed by Drs. Magno Jones, Tara Willson, Fredis Leyva and colleagues, with an educational kim from [employer]. Thrive Questionnaire Date Thrive assessed: 09/20/24 I am a: Patient What is your living situation today?: I choose not to answer this question Within the past 12 months, did the food you bought not last and you didn't have the money to get more?: I choose not to answer this question Within the past 12 months, did you worry whether your food would run out before you got money to buy more?: I choose not to answer this question Do you have trouble paying for medicines?: No Do you have trouble getting transportation to medical appointments?: No Do you have trouble paying your heating and electricity bill?: No Do you have trouble taking care of your child, family member or friend?: No Do you have trouble with day-to-day activities such as bathing, preparing meals, shopping, managing finances, etc.?: No Are you currently unemployed and looking for a job?: No Are you interested in more education?: No Please select the resources that you would like help with: None Currently or been in a relationship where the following occur: I choose not to answer THRIVE Score: 0 AUDIT C Alcohol Use Questionnaire (AUDIT-C) 1. How often do you have a drink containing alcohol?: Never 3. How often do you have six or more drinks on one occasion?: Never Total Score: 0 DELPHINE-7 AMB Questionnaire DELPHINE-7 Date DELPHINE - 7 assessed: 09/20/24 Feeling nervous, anxious, or on edge: 0 = Not at all Not being able to stop or control worryin = Not at all Worrying too much about different things: 0 = Not at all Trouble relaxin = Not at all Being so restless that it is hard to sit still: 0 = Not at all Becoming easily annoyed or irritable: 0 = Not at all Feeling afraid as if something awful might happen: 0 = Not at all Total DELPHINE-7 score (0-4 normal; 5-9 mild; 10-14 moderate; 15-21 severe): 0 Source: Developed by Drs. Magno Jones, Tara Willson, Fredis Leyva and colleagues, with an educational kim from [employer]. DELPHINE-7 Assessment Billing DELPHINE-7 Assessment Tool: DELPHINE-7 Assessment 84916 Review of Systems Const Denies headache(s) Eyes Denies loss of vision ENT Denies vertigo, Denies dizziness, Denies headache(s) and Denies sore throat Card Denies chest pain, Denies leg edema and Denies lightheadedness Resp Denies cough, Denies hemoptysis and Denies wheezing GI Denies abdominal pain, Denies melena, Reports bloating (he has been watching what he eats), Denies constipation, Denies diarrhea and Denies vomiting Denies dysuria, Denies urinary frequency, Denies urinary urgency and Reports other (reports intermittent prostate pain, lasting for seconds) Musc Denies arthralgias, Denies joint swelling, Denies numbness and Denies tingling Skin/Breast Reports lesions (right side of nose fleshed colored mole) Neuro Denies Abnormal speech present, Denies behavioral changes, Denies vertigo, Denies dizziness, Denies headache(s), Denies loss of vision, Denies memory loss, Denies numbness and Denies tingling Psych Denies anxiety, Denies behavioral changes, Denies depression, Denies memory loss and Denies panic attacks Sunil/Lymph Denies easy bleeding and Denies easy bruising Aller/Immun Denies wheezing Physical exam (Primary Care) Vital Signs: Last Vital Signs Temp 97.3 F 09/20/24 08:58 Pulse 78 09/20/24 08:58 BP 116/80 09/20/24 08:58 Pulse Ox 98 09/20/24 08:58 Oxygen Delivery Method Room Air 09/20/24 08:58 BMI result Body Mass Index 27.0 Tobacco/Smoking Status: Tobacco use Status Tobacco use date assessed 09/20/24 09/20/24 09:02 Patient Tobacco Use Status Never used Tobacco 09/20/24 09:02 e-Cigarette/Vaping Use Never Used 09/20/24 09:02 PHQ-9: PHQ-9 Score PHQ-9: Total score 5 09/20/24 09:10 Depression Screening Interpretation: Negative Thrive Assessment: Date of Thrive Assessment Date Thrive assessed 09/20/24 09/20/24 09:02 Currently or been in a relationship where the following occur: I choose not to answer Const General: healthy appearing, no acute distress, alert and awake Nutritional Appearance: well nourished Orientation/consciousness: oriented to person, oriented to place and oriented to time HENMT Ears: TM's normal bilaterally General nose exam: Normal nasal mucous membranes and turbinates present Eyes Conjunctivae: conjunctivae normal Sclerae: sclerae normal Pupils: Equal, round and reactive pupils present Neck Neck: Yes no lymphadenopathy and Yes no JVD Thyroid: Thyroid normal Carotids: no bruits Resp Effort & Inspection: normal respiratory effort and not tachypneic Auscultation: no crackles, no rales, no rhonchi and no wheezes Cardio Rate: regular rate Rhythm: regular rhythm Heart sounds: no murmurs and normal S1 and S2 GI Palpation (GI): Soft to palpation, nontender, no hepatomegaly and no splenomegaly Auscultation: normal bowel sounds General: Yes no CVA tenderness Back/Spine/Pelvis Back: no CVA tenderness Skin General skin exam: dry skin Lesions: lesion noted (Right side of nose flesh colored mole) Neuro General: oriented to person, oriented to place and oriented to time Cranial nerves: Yes CN's II-XII intact bilaterally and Yes Equal, round and reactive pupils present Speech: No Abnormal speech present Gait exam (Neuro): Normal gait present Motor exam (neuro): no tremor noted Deep tendon reflexes (DTR's): Right triceps reflex intensity grade: 2+, Left triceps reflex intensity grade: 2+, Rt Biceps (C5, C6): 2+, Left biceps reflex intensity grade: 2+, Right brachioradialis reflex intensity grade: 2+, Left brachioradialis reflex intensity grade: 2+, Right patellar reflex intensity grade: 2+ and Left patellar reflex intensity grade: 2+ Extrem Right upper extremity: full ROM Left upper extremity: full ROM Right lower extremity: full ROM; no edema Left lower extremity: full ROM; no edema Psych Mental Status: mental status grossly normal Speech and movement: Normal speech and movement present Affect: normal affect Attitude: cooperative Thought process: Normal thought process present Coding Level of Care Code Est Pt Prev Care 40-64y(58593) Diagnoses Annual physical exam Z00.00 Elevated LFTs R79.89 Overweight (BMI 25.0-29.9) E66.3 Prostate pain N42.81 Bloating R14.0 Skin mole D22.9 Additional Codes DELPHINE-7 Assessment Billing - DELPHINE-7 Assessment Tool: DELPHINE-7 Assessment [id number] ([id number]) PHQ-9 - 28267 - PHQ-9 Billing: Yes ([id number]) Time Spent (min) 36 Assessment & Plan Assessment & Plan (1) Annual physical exam: Code(s): Z00.00 - Encounter for general adult medical examination without abnormal findings Category: Medical Plan: Preventive guidelines reviewed with the patient. Patient did not complete his preordered labs. He is going to get these done as soon as possible. Colonoscopy last year to be repeated in 10 years. (2) Elevated LFTs: Code(s): R79.89 - Other specified abnormal findings of blood chemistry Category: Medical Plan: LFTs were normal on the last 2 previous labs. CMP preordered for the patient to complete. We will advise when resulted (3) Overweight (BMI 25.0-29.9): Code(s): E66.3 - Overweight Category: Medical Plan: Encouraged to exercise for at least 30 minutes a day/5 days a week Healthy eating discussed. Encouraged to eat fruits/vegetables, protein- fish/baked chicken, and to avoid salty/fried foods, sweets, caffeine and carbohydrates. Encouraged to increase water intake 6-8 glasses a day (4) Prostate pain: Code(s): N42.81 - Prostatodynia syndrome Category: Medical Plan: Reports intermittent sharp pain lasting for seconds, then he does not feel any pain for a while. Patient has scheduled UA, we will add a PSA to further evaluate, questioning chronic prostatitis (5) Bloating: Code(s): R14.0 - Abdominal distension (gaseous) Category: Medical Plan: Encouraged the patient to use the FODMAP diet to track the foods that are causing his symptoms and the limited them (6) Skin mole: Code(s): D22.9 - Melanocytic nevi, unspecified Category: Medical Plan: Right side of nose skin colored mole. Reports that this is not bothersome but he did notice that his got slightly bigger. We will refer to Dermatology for possible removal Plan Patient to return in 1 year for annual or sooner for any concerns Orders: Orders PSA,Total (Free>4and<10) Today Z00.00 - Encounter for general adult medical examination without abnormal findings Referrals Dermatology Referral D22.9 - Melanocytic nevi, unspecified
== END 2024-09-20 09:45 | disposition home or self-care (01) ==
LOC: HO.HMCH 08:56
PROVIDERS: PCP Internal Medicine
DX: Z00.00 Encounter for general adult medical examination without abnormal findings (principal); R79.89 Other specified abnormal findings of blood chemistry; E66.3 Overweight; N42.81 Prostatodynia syndrome; R14.0 Abdominal distension (gaseous); D22.9 Melanocytic nevi, unspecified

== ENCOUNTER 2024-09-20 08:56 | Outpatient (REF) | payer BC, SELFPAY ==
[2024-09-20 09:46] LABS: MANUAL DIFF FLAG NO
[2024-09-20 10:33] LABS: Hematocrit 42.3 % (42.0-52.0); Hemoglobin 14.8 g/dl (14.0-18.0); Imm Gran Abs Auto 0.01 X10*3/uL (0.00-0.03); Imm Gran Pct Auto 0.2 % (0.0-0.4); Lymphocytes Absolute Auto 1.6 X10*3/uL (1.2-4.9); Mean Corpuscular HGB Conc 35.0 g/dl (31.0-36.0); Mean Corpuscular Hemoglobin 30.3 pg (27.0-33.0); Mean Corpuscular Volume 86.7 fL (80.0-98.0); NRBC Abs Auto 0.000 X10*3/uL (0.0-0.012); NRBC Pct Auto 0.0 /100WBC (0.0-0.2); Platelet Count 187 X10*3/uL (160-400); Red Blood Count 4.88 X10*6/uL (4.60-5.80); White Blood Count 4.7 X10*3/uL (4.8-10.8)
[2024-09-20 10:43] LABS: Appearance Urine Clear; Glucose Urine UA Negative (Negative); PH 7.0 (5.0-9.0); Specific Gravity - Urine 1.020 (1.005-1.025)
[2024-09-20 11:14] LABS: Alanine Aminotransferase 19 U/L (0-40); Albumin Level 4.6 g/dL (3.5-5.0); Alkaline Phosphatase 55 U/L (39-117); Anion Gap 11 (12-20); Aspartate Amino Transferase 22 U/L (5-37); Blood Urea Nitrogen 10 mg/dL (9-16); Calcium 9.1 mg/dL (8.4-10.2); Carbon Dioxide 27 mmol/L (22-29); Chloride 108 mmol/L (96-108); Cholesterol 163 mg/dL (<200); Estimated Glomerular Filt Rate > 60; HDL Cholesterol 42 mg/dL (>40); Potassium 4.0 mmol/L (3.3-5.1); Sodium 142 mmol/L (135-145); Total Protein 6.9 g/dL (6.5-8.0); Triglycerides 93 mg/dL (<150)
[2024-09-20 11:27] LABS: PSA,Total (Free>4and<10) 1.41 ng/mL (0.00-4.00)
== END 2024-09-20 08:57 | disposition home or self-care (01) ==
LOC: HO.LAB 08:56
PROVIDERS: PCP Internal Medicine; Visit Provider Internal Medicine
DX: Z00.00 Encounter for general adult medical examination without abnormal findings (principal); R79.89 Other specified abnormal findings of blood chemistry; E66.3 Overweight; Z68.27 Body mass index [BMI] 27.0-27.9, adult; N42.81 Prostatodynia syndrome; R14.0 Abdominal distension (gaseous); D22.39 Melanocytic nevi of other parts of face; Z13.31 Encounter for screening for depression; Z13.39 Encounter for screening examination for other mental health and behavioral disorders; Z12.5 Encounter for screening for malignant neoplasm of prostate; D64.9 Anemia, unspecified; E78.00 Pure hypercholesterolemia, unspecified; R30.0 Dysuria; E55.9 Vitamin D deficiency, unspecified
CPT/HCPCS: 36415; 80053; 80061; 81003; 82306; 84153; 84443; 85025; 96127